=== PATIENT | female | born 1950 | race Caucasian/White ===

== ENCOUNTER 2018-12-15 06:26 | Day surgery (SDC) | payer MEDICARE, OTHER ==
[2018-12-15] MEDS ORDERED: Lactated Ringers 1,000 ML IV SCH (07:00)
[2018-12-15] MEDS ORDERED: Propofol 200 MG/20 ML SDV ONE (07:55)
[2018-12-15] MEDS ORDERED: fentaNYL 100 MCG/2 ML SDV ONE (07:55)
--- NOTE | 2018-12-15 08:52 | OR ---
PREOPERATIVE DIAGNOSIS: History of polyps. POSTOPERATIVE DIAGNOSES: 1. Colonic polyps x3. 2. Sigmoid diverticulosis. PROCEDURE PROPOSED: Total flexible colonoscopy. PROCEDURES DONE: 1. Total flexible colonoscopy with cold snare polypectomy x1. 2. Cold biopsy forceps polypectomy x2. INDICATIONS: This is a 68-year-old female comes in for colonic screening due to history of polyps. Her last examination was roughly 5 years ago. TECHNIQUE: The patient brought to the endoscopy suite and placed in left lateral decubitus position. She was sedated per DURABILITY TECHNICIAN with propofol. The flexible video colonoscope was then passed transanally and under visualization advanced to the cecum. She was found to have a small polyp in the cecum removed with one bite of the cold biopsy forceps. She was then found to have another polyp near the hepatic flexure again removed with one bite of the cold biopsy forceps. The transverse and descending colon were unremarkable. The sigmoid colon revealed moderate diverticulosis and at 20 cm from the anal verge, there was a slightly larger polyp which was removed with a cold snare technique and retrieved with suction, and the remainder of the rectosigmoid was normal as the scope was then withdrawn. She tolerated procedure well. FINAL IMPRESSION: 1. Colonic polyps x3 removed. 2. Sigmoid diverticulosis. PLAN: She will be sent a letter with pathology report. I felt that she should have at least one more examination in 5 years' time to rule out recurrent polyps. SCM: 12/15/2018 08:26:12 MODL: 12/15/2018 08:44:05 /[id number]
[2018-12-15 08:55] VITALS: BP 129/80
== END 2018-12-15 09:32 | disposition home or self-care (01) ==
LOC: VM.SDS 06:26
PROVIDERS: ATTEND Surgery
DX: Z12.11 Encounter for screening for malignant neoplasm of colon (principal); D12.0 Benign neoplasm of cecum; D12.4 Benign neoplasm of descending colon; D12.5 Benign neoplasm of sigmoid colon; K63.5 Polyp of colon; K57.30 Diverticulosis of large intestine without perforation or abscess without bleeding; I10 Essential (primary) hypertension; E11.9 Type 2 diabetes mellitus without complications; F17.210 Nicotine dependence, cigarettes, uncomplicated; E05.90 Thyrotoxicosis, unspecified without thyrotoxic crisis or storm; I25.10 Atherosclerotic heart disease of native coronary artery without angina pectoris; D50.9 Iron deficiency anemia, unspecified; F33.0 Major depressive disorder, recurrent, mild; Z86.010 Personal history of colon polyps; Z79.899 Other long term (current) drug therapy; Z80.0 Family history of malignant neoplasm of digestive organs; Z98.84 Bariatric surgery status
CPT/HCPCS: 00811; 45385; 82962; J2704; J3010; J7120

== ENCOUNTER 2024-11-05 08:24 | Day surgery (SDC) | payer MEDICARE, OTHER ==
[~2024-11-05 08:24] MED LIST: Brimonidine 0.2% Ophth Soln 5 ML Bottle ONE; Cyclopentolate 1% Opth Soln 2 ML Bottle EYERT SCH; Dexamethasone/Neomycin/Polymyxin B Ophth Oint 3.5 GM Tube ONE; Lidocaine 1% 2 ML ONE; Moxifloxacin 0.5% Ophth Soln 3 ML Bottle EYERT ONE; Phenylephrine 2.5% Ophth Soln 2 ML Bot EYERT SCH; Phenyleprhine/Ketorolac 4 ML Vial ONE; Povidone-Iodine 5% Sterile Ophth Soln 30 ML Bottle ONE; Proparacaine 0.5% Ophth Soln 15 ML Bottle ONE; Tropicamide 1% Ophth Soln 3 ML Bottle EYERT SCH
[2024-11-05] MEDS: Phenylephrine 2.5% Ophth Soln 2 ML Bot EYERT SCH (08:37)
[2024-11-05] MEDS: Tropicamide 1% Ophth Soln 3 ML Bottle EYERT SCH (08:38)
[2024-11-05] MEDS: Cyclopentolate 1% Opth Soln 2 ML Bottle EYERT SCH (08:38)
[2024-11-05] MEDS ORDERED: Midazolam 1 MG/ML 2 ML SDV ONE (08:43)
[2024-11-05] MEDS ORDERED: fentaNYL 100 MCG/2 ML SDV ONE (08:43)
[2024-11-05] MEDS: Moxifloxacin 0.5% Ophth Soln 3 ML Bottle EYERT ONE ×2 (09:01→10:01)
[2024-11-05] MEDS ORDERED: ceFAZolin 500 MG Vial ONE (10:00)
[2024-11-05] MEDS: Balanced Salt Solution Ophth Irrig 500 ML Bottle IOCULAR ONE (10:02)
[2024-11-05] MEDS: Phenyleprhine/Ketorolac 4 ML Vial IO ONE (10:02)
[2024-11-05] MEDS: Lidocaine 1% PF 2 ML SDV INFILT ONE (10:03)
[2024-11-05] MEDS: Chondroitin Sulfate/Hyaluronate Sodium Ophth Inj 0.5 ML Syringe IOCULAR ONE (10:04)
[2024-11-05] MEDS: Povidone-Iodine 5% Sterile Ophth Soln 30 ML Bottle EYERT ONE (10:05)
[2024-11-05] MEDS: Tetracaine HCl/PF 0.5% 4 ML Bottle EYERT ONE (10:05)
[2024-11-05] MEDS: Brimonidine 0.2% Ophth Soln 5 ML Bottle EYERT ONE (10:05)
[2024-11-05] MEDS: Dexamethasone/Neomycin/Polymyxin B Ophth Oint 3.5 GM Tube EYERT ONE (10:05)
[2024-11-05] MEDS: acetaZOLAMIDE 500 MG Cap.ER PO SCH (10:37)
[2024-11-05 10:49] VITALS: BP 118/50; PULSE 81
== END 2024-11-05 11:09 | disposition home or self-care (01) ==
LOC: VM.SDS 08:24
PROVIDERS: ATTEND Ophthalmology
DX: E11.36 Type 2 diabetes mellitus with diabetic cataract (principal); H26.8 Other specified cataract; I10 Essential (primary) hypertension; E11.51 Type 2 diabetes mellitus with diabetic peripheral angiopathy without gangrene; J43.9 Emphysema, unspecified; E66.9 Obesity, unspecified; M81.0 Age-related osteoporosis without current pathological fracture; J30.2 Other seasonal allergic rhinitis
CPT/HCPCS: 00142; 82947; 99100; A9270-GY; J0690; J1097; J2250; J3010; J3490